=== PATIENT | male | born 1960 | race American Indian/Alaskan Native ===

== ENCOUNTER 2021-10-03 12:12 | Inpatient (IN) | payer SELFPAY ==
[2021-10-03] MEDS ORDERED: ONDANSETRON 4 MG ODT TAB PO ONE (18:37)
[2021-10-03] MEDS ORDERED: MORPHINE 4 MG/1 ML INJ IM ONE (18:37)
[2021-10-03 19:25] LABS: Hematocrit 46.1 % (35.5-45.6); Hemoglobin 14.8 gm/dl (11.8-15.2); Mean Corpuscular HGB Conc 32 % (32-34); Mean Corpuscular Volume 87 fl (84-94); Platelet Count 251 K/mm3 (140-440); Red Blood Count 5.31 M/mm3 (3.65-5.03); Red Cell Distribution Width 14.8 % (13.2-15.2)
[2021-10-03] MEDS ORDERED: MORPHINE 4 MG/1 ML INJ IV ONE ×2 (19:26→21:32)
[2021-10-03] MEDS ORDERED: ONDANSETRON 4 MG/2 ML INJ IV ONE ×2 (19:26→21:33)
[2021-10-03 19:33] LABS: Alanine Aminotransferase 24 units/L (7-56); BUN/Creatinine Ratio 13; Blood Urea Nitrogen 10 mg/dL (9-20); Calcium 9.8 mg/dL (8.4-10.2); Hemolysis Index 13
[2021-10-03 20:01] LABS: Bilirubin,Urine NEG (Negative); Blood,Urine MOD (Negative); Color,Urine Yellow (Yellow); Hyaline Casts,Urine 3 /LPF; Mucus,Urine FEW /HPF; Urobilinogen,Urine < 2.0 mg/dL (<2.0)
[2021-10-03] MEDS ORDERED: SODIUM CHLORIDE 0.9% 1000 ML 1,000 ML IV ONE (20:01)
--- NOTE | 2021-10-03 21:12 | Cat Scan Report ---
CT ABDOMEN AND PELVIS WITH CONTRAST INDICATION / CLINICAL INFORMATION: right groin pain and swelling.. TECHNIQUE: Axial CT images were obtained through the abdomen and pelvis after 100 mL Omnipaque [address] scans at this location are performed using CT dose reduction for ALARA by means of automated exposure control. COMPARISON: None available. FINDINGS: LOWER CHEST: No significant abnormality. LIVER: Diffusely hypodense characteristic of fatty infiltration with areas of focal fatty sparing in the right lobe. GALLBLADDER: No significant abnormality. BILE DUCTS: No significant abnormality. PANCREAS: No significant abnormality. SPLEEN: No significant abnormality. ADRENALS: No significant abnormality. RIGHT KIDNEY / URETER: No significant abnormality. LEFT KIDNEY / URETER: No significant abnormality. STOMACH / SMALL BOWEL: Moderately dilated, fluid-filled small bowel air-fluid levels. Moderately larg e right inguinal hernia containing loops of small bowel including the point of obstruction. COLON: No significant abnormality. APPENDIX: No significant abnormality. PERITONEUM: No free fluid. No free air. No fluid collection. LYMPH NODES: No significant adenopathy. AORTA / ARTERIES: No significant abnormality. IVC / VEINS: No significant abnormality. URINARY BLADDER: No stones. The anterior bladder is tented toward the opening of a small fat-containi ng left inguinal hernia. REPRODUCTIVE ORGANS: No significant abnormality. ADDITIONAL FINDINGS: None. SKELETAL SYSTEM: Moderate bilateral hip degenerative arthrosis. No acute osseous abnormality. IMPRESSION: 1. Moderately large right inguinal hernia containing small bowel loops with moderate grade small chetan l obstruction. 2. Small, fat-containing left inguinal hernia. 3. Hepatic steatosis. Signer Name: Dinh Baron MD Signed: 10/03/2021 9:08 PM Workstation Name: [id number]
--- NOTE | 2021-10-03 21:46 | Emergency Department Report ---
ED Abdominal Pain HPI - General Chief Complaint: Pain General Stated Complaint: HERNIA PAIN Time Seen by Provider: 10/03/21 18:35 Source: patient, EMS Mode of arrival: Ambulatory Limitations: No Limitations - History of Present Illness Initial Comments: 61-year-old black male with a past medical history of hypertension presents to the emergency department for evaluation of right groin and lower abdominal pain that started around 4:00 this morning. He states that about 1 month ago he was diagnosed with a right inguinal hernia at [facility] and was referred to surgery. He states that he did attempt to do his surgery follow-up but could not be seen secondary to not having a [facility] address, so he did decide to come to the emergency department here. He states that right groin pain and swelling has been getting increasingly worse over today and he started to have some nausea and vomiting while in the waiting room here. He states that pain is 10 out of 10 and worse when he ambulates. He denies fever, diarrhea, and penile discharge. MD Complaint: abdominal pain -: Gradual, hour(s), This morning Location: RLQ (And right groin) Radiation: none Migration to: no migration Severity scale (0 -10): 10 Quality: aching Consistency: constant Worsens With: other (Ambulation) Associated Symptoms: nausea, vomiting. denies: diarrhea, fever, chills, dysuria, hematemesis, hematochezia, melena, hematuria, anorexia, syncope - Related Data Home Medications Medication Instructions Recorded Confirmed Last Taken No Known Home Medications [No 10/03/21 10/03/21 Unknown Reported Home Medications] Allergies Allergy/AdvReac Type Severity Reaction Status Date / Time No Known Allergies Allergy Verified 10/03/21 12:17 ED Review of Systems ROS: Stated complaint: HERNIA PAIN Other details as noted in HPI Comment: All other systems reviewed and negative Constitutional: denies: chills, fever ENT: denies: ear pain, congestion Respiratory: denies: cough, shortness of breath, SOB with exertion, SOB at rest, stridor, wheezing Cardiovascular: denies: chest pain, palpitations, dyspnea on exertion, orthopnea, edema, syncope, paroxysmal nocturnal dyspnea Gastrointestinal: abdominal pain, nausea, vomiting. denies: diarrhea, he matemesis, melena, hematochezia Genitourinary: testicular pain. denies: urgency, dysuria, frequency, hematuria, discharge Musculoskeletal: denies: back pain Neurological: denies: headache, weakness ED Past Medical Hx - Social History Smoking Status: Never Smoker Substance Use Type: None - Medications Home Medications: Home Medications Medication Instructions Recorded Confirmed Last Taken Type No Known Home Medications [No 10/03/21 10/03/21 Unknown History Reported Home Medications] ED Physical Exam - General Limitations: No Limitations General appearance: alert, in no apparent distress - Head Head exam: Present: atraumatic, normocephalic - Eye Eye exam: Present: normal appearance. Absent: conjunctival injection - Neck Neck exam: Present: normal inspection, full ROM. Absent: tenderness - Respiratory Respiratory exam: Present: normal lung sounds bilaterally. Absent: respiratory distress, wheezes, rales, rhonchi, stridor, chest wall tenderness - Cardiovascular Cardiovascular Exam: Present: regular rate, normal heart sounds - GI/Abdominal GI/Abdominal exam: Present: soft, tenderness (RLQ ), normal bowel sounds. Absent: distended, guarding, rebound, rigid - Rectal Rectal exam: Present: deferred - exam: Present: testicular tenderness, scrotal swelling. Absent: normal inspection - Extremities Exam Extremities exam: Present: normal inspection, full ROM, normal capillary refill. Absent: pedal edema, joint swelling, calf tenderness - Back Exam Back exam: Present: normal inspection. Absent: CVA tenderness (R), CVA tenderness (L), vertebral tenderness - Neurological Exam Neurological exam: Present: alert, oriented X3 - Psychiatric Psychiatric exam: Present: normal affect, normal mood - Skin Skin exam: Present: warm, dry, intact, normal color ED Course Vital Signs 10/03/21 10/03/21 12:16 20:44 Temperature 98.7 F Pulse Rate 86 79 Respiratory 20 Rate Blood Pressure 198/110 147/85 [Left] O2 Sat by Pulse 98 98 Oximetry ED Medical Decision Making - Lab Data Result diagrams: 10/03/21 19:00 10/03/21 19:00 - Radiology Data Radiology results: report reviewed, image reviewed CT abdomen and pelvis with contrast: FINDINGS: LOWER CHEST: No significant abnormality. LIVER: Diffusely hypodense characteristic of fatty infiltration with areas of focal fatty sparing in the right lobe. GALLBLADDER: No significant abnormality. BILE DUCTS: No significant abnormality. PANCREAS: No significant abnormality. SPLEEN: No significant abnormality. ADRENALS: No significant abnormality. RIGHT KIDNEY / URETER: No significant abnormality. LEFT KIDNEY / URETER: No significant abnormality. STOMACH / SMALL BOWEL: Moderately dilated, fluid-filled small bowel air-fluid levels. Moderately large right inguinal hernia containing loops of small bowel including the point of obstruction. COLON: No significant abnormality. APPENDIX: No significant abnormality. PERITONEUM: No free fluid. No free air. No fluid collection. LYMPH NODES: No significant adenopathy. AORTA / ARTERIES: No significant abnormality. IVC / VEINS: No significant abnormality. URINARY BLADDER: No stones. The anterior bladder is tented toward the opening of a small fat- containing left inguinal hernia. REPRODUCTIVE ORGANS: No significant abnormality. ADDITIONAL FINDINGS: None. SKELETAL SYSTEM: Moderate bilateral hip degenerative arthrosis. No acute osseous abnormality. IMPRESSION: 1. Moderately large right inguinal hernia containing small bowel loops with moderate grade small bowel obstruction. 2. Small, fat-containing left inguinal hernia. 3. Hepatic steatosis. - Medical Decision Making 61-year-old black male with a past medical history of hypertension presents to the emergency department for evaluation of right groin and lower abdominal pain that started around 4:00 this morning. He states that about 1 month ago he was diagnosed with a right inguinal hernia at [facility] and was referred to surgery. He states that he did attempt to do his surgery follow-up but could not be seen secondary to not having a [facility] address, so he did decide to come to the emergency department here. He states that right groin pain and swelling has been getting increasingly worse over today and he started to have some nausea and vomiting while in the waiting room here. He states that pain is 10 out of 10 and worse when he ambulates. He denies fever, diarrhea, and penile discharge. No gross abnormalities noted on exam or labs. CT abdomen and pelvis positive for large inguinal hernia with small bowel inside with moderate grade obstruction. Case discussed with Dr. Raymond then surgery, Dr. Kowalski, consulted who agreed to evaluate patient. Dr. Tapia of the hospital medicine service, agreed to admit patient. Results and plan of care reviewed with patient and he verbalized understanding of and agreement with plan of care. Critical care attestation.: If time is entered above; I have spent that time in minutes in the direct care of this critically ill patient, excluding procedure time. ED Disposition Clinical Impression: Inguinal hernia Qualifiers: Obstruction and gangrene presence: with obstruction but without gangrene Latera lity: unilateral Recurrence: not specified as recurrent Qualified Code(s): K40.30 - Unilateral inguinal hernia, with obstruction, without gangrene, not specified as recurrent Disposition: 09 ADMITTED INPATIENT Is pt being admited?: Yes Does the pt Need Aspirin: No Condition: Stable
[2021-10-03] MEDS ORDERED: MORPHINE 4 MG/1 ML INJ IV PRN (22:06)
[2021-10-03] MEDS ORDERED: ONDANSETRON 4 MG/2 ML INJ IV PRN (22:06)
[2021-10-03] MEDS ORDERED: MORPHINE 2 MG/1 ML INJ IV PRN (22:06)
--- NOTE | 2021-10-03 22:14 | History and Physical Report ---
History of Present Illness Date of examination: 10/03/21 Date of admission: 10/03/21 Chief complaint: Abdominal pain History of present illness: 61-year-old black male with a past medical history of hypertension presents to the emergency department for evaluation of right groin and lower abdominal pain that started around 4:00 this morning. He states that about 1 month ago he was diagnosed with a right inguinal hernia at [facility] and was referred to surgery. He states that he did attempt to do his surgery follow-up but could not be seen secondary to not having a [facility] address, so he did decide to come to the emergency department here. He states that right groin pain and swelling has been getting increasingly worse over today and he started to have some nausea and vomiting while in the waiting room here. He states that pain is 10 out of 10 and worse when he ambulates. He denies fever, diarrhea. In the emergency room CT scan of the abdomen shows moderately large right inguinal hernia containing small bowel loops with moderate grade small bowel obstruction. Subsequently Case discussed with surgery's were going to admit the patient, surgery will see the patient for possible surgery. Past History Past Medical History: hypertension Medications and Allergies Allergies Allergy/AdvReac Type Severity Reaction Status Date / Time No Known Allergies Allergy Verified 10/03/21 12:17 Home Medications Medication Instructions Recorded Confirmed Last Taken Type No Known Home Medications [No 10/03/21 10/03/21 Unknown History Reported Home Medications] Active Meds: Active Medications Acetaminophen (Acetaminophen 325 Mg Tab) 650 mg PO Q4H PRN PRN Reason: Pain MILD(1-3)/Fever >100.5/GARCIA Albuterol (Albuterol 2.5 Mg/3 Ml Nebu) 2.5 mg IH Q3HRT PRN PRN Reason: Shortness Of Breath Albuterol/Ipratropium (Ipratropium/Albuterol Sulfate 3 Ml Ampul.Neb) 1 ampul IH Q6HRT MOHINI Famotidine (Famotidine 20 Mg/2 Ml Inj) 20 mg IV BID MOHINI Heparin Sodium (Porcine) (Heparin 5,000 Unit/1 Ml Vial) 5,000 unit SUB-Q Q12HR MOHINI Sodium Chloride (Nacl 0.45% 1000 Ml) 1,000 mls @ 100 mls/hr IV DIRECT MOHINI Piperacillin Sod/Tazobactam Sod (Zosyn/Ns 4.5gm/100ml) 4.5 gm in 100 mls @ 200 mls/hr IV Q8H MOHINI; Protocol Morphine Sulfate (Morphine 2 Mg/1 Ml Inj) 2 mg IV Q4H PRN PRN Reason: Pain, Moderate (4-6) Morphine Sulfate (Morphine 4 Mg/1 Ml Inj) 2 mg IV Q4H PRN PRN Reason: Pain , Severe (7-10) Ondansetron HCl (Ondansetron 4 Mg/2 Ml Inj) 4 mg IV Q8H PRN PRN Reason: Nausea And Vomiting Sodium Chloride (Sodium Chloride 0.9% 10 Ml Flush Syringe) 10 ml IV BID MOHINI Sodium Chloride (Sodium Chloride 0.9% 10 Ml Flush Syringe) 10 ml IV PRN PRN PRN Reason: LINE FLUSH Review of Systems All systems: negative Gastrointestinal: abdominal pain, nausea, vomiting Exam - Constitutional Vitals: Temp Pulse Resp BP Pulse Ox 98.7 F 79 20 147/85 98 10/03/21 20:44 10/03/21 20:44 10/03/21 20:44 10/03/21 20:44 10/03/21 20:44 General appearance: Present: no acute distress, well-nourished - EENT Eyes: Present: PERRL ENT: hearing intact, clear oral mucosa - Neck Neck: Present: supple, normal ROM - Respiratory Respiratory effort: normal Respiratory: bilateral: CTA - Cardiovascular Heart Sounds: Present: S1 & S2. Absent: rub, click - Extremities Extremities: pulses symmetrical, No edema Peripheral Pulses: within normal limits - Abdominal General gastrointestinal: Present: soft, non-tender, non-distended, normal bowel sounds Male genitourinary: Present: normal - Integumentary Integumentary: Present: clear, warm, dry - Musculoskeletal Musculoskeletal: gait normal, strength equal bilaterally - Psychiatric Psychiatric: appropriate mood/affect, intact judgment & insight - Neurologic Neurologic: CNII-XII intact, moves all extremities Results - Labs CBC & Chem 7: 10/03/21 19:00 10/03/21 19:00 Labs: Laboratory Last Values WBC 7.4 K/mm3 (4.5-11.0) 10/03/21 19:00 RBC 5.31 M/mm3 (3.65-5.03) H 10/03/21 19:00 Hgb 14.8 gm/dl (11.8-15.2) 10/03/21 19:00 Hct 46.1 % (35.5-45.6) H 10/03/21 19:00 MCV 87 fl (84-94) 10/03/21 19:00 MCH 28 pg (28-32) 10/03/21 19:00 MCHC 32 % (32-34) 10/03/21 19:00 RDW 14.8 % (13.2-15.2) 10/03/21 19:00 Plt Count 251 K/mm3 (140-440) 10/03/21 19:00 Sodium 137 mmol/L (137-145) 10/03/21 19:00 Potassium 4.1 mmol/L (3.6-5.0) 10/03/21 19:00 Chloride 99.9 mmol/L (98-107) 10/03/21 19:00 Carbon Dioxide 22 mmol/L (22-30) 10/03/21 19:00 Anion Gap 19 mmol/L 10/03/21 19:00 BUN 10 mg/dL (9-20) 10/03/21 19:00 Creatinine 0.8 mg/dL (0.8-1.3) 10/03/21 19:00 Estimated GFR > 60 ml/min 10/03/21 19:00 BUN/Creatinine Ratio 13 % 10/03/21 19:00 Glucose 108 mg/dL (75-100) H 10/03/21 19:00 Calcium 9.8 mg/dL (8.4-10.2) 10/03/21 19:00 Total Bilirubin 0.50 mg/dL (0.1-1.2) 10/03/21 19:00 AST 21 units/L (5-40) 10/03/21 19:00 ALT 24 units/L (7-56) 10/03/21 19:00 Alkaline Phosphatase 87 units/L (35-129) 10/03/21 19:00 Total Protein 7.8 g/dL (6.3-8.2) 10/03/21 19:00 Albumin 4.0 g/dL (3.9-5) 10/03/21 19:00 Albumin/Globulin Ratio 1.1 % 10/03/21 19:00 Lipase 12 units/L (13-60) L 10/03/21 19:00 Urine Color Yellow (Yellow) 10/03/21 Unknown Urine Turbidity Clear (Clear) 10/03/21 Unknown Urine pH 5.0 (5.0-7.0) 10/03/21 Unknown Ur Specific [place] 1.021 (1.003-1.030) 10/03/21 Unknown Urine Protein 30 mg/dl mg/dL (Negative) 10/03/21 Unknown Urine Glucose (UA) Neg mg/dL (Negative) 10/03/21 Unknown Urine Ketones Tr mg/dL (Negative) 10/03/21 Unknown Urine Blood Mod (Negative) 10/03/21 Unknown Urine Nitrite Neg (Negative) 10/03/21 Unknown Urine Bilirubin Neg (Negative) 10/03/21 Unknown Urine Urobilinogen < 2.0 mg/dL (<2.0) 10/03/21 Unknown Ur Leukocyte Esterase Neg (Negative) 10/03/21 Unknown Urine WBC (Auto) 3.0 /HPF (0.0-6.0) 10/03/21 Unknown Urine RBC (Auto) 6.0 /HPF (0.0-6.0) 10/03/21 Unknown U Epithel Cells (Auto) < 1.0 /HPF (0-13.0) 10/03/21 Unknown Hyaline Casts 3 /LPF 10/03/21 Unknown Urine Mucus Few /HPF 10/03/21 Unknown - Imaging and Cardiology CT scan - abdomen: report reviewed Assessment and Plan VTE prophylaxis?: Chemical Plan of care discussed with patient/family: Yes - Patient Problems (1) Inguinal hernia Status: Acute Qualifiers: Obstruction and gangrene presence: with obstruction but without gangrene Laterality: unilateral Recurrence: not specified as recurrent Qualified Code(s): K40.30 - Unilateral inguinal hernia, with obstruction, without gangrene, not specified as recurrent Plan to address problem: Admit the patient to the medical floor. NPO. Half-normal saline at the rate of 100 cc/h. Pepcid 20 mg IV every 12 hours. Morphine 2 mg IV every 4 hours as needed. Surgical evaluation. Zosyn 4.5 g IV every 8 hours (2) Nausea & vomiting Status: Acute Plan to address problem: NPO. Half-normal saline at the rate of 100 cc/h. Pepcid 20 mg IV every 12 hours. Zofran 4 mg IV every 6 hours as needed (3) Abdominal pain Status: Acute Plan to address problem: NPO. Half-normal saline at the rate of 100 cc/h. Pepcid 20 mg IV every 12 hours. Morphine 2 mg IV every 4 hours as needed. (4) Hypertension Status: Acute Plan to address problem: Hydralazine 10 mg IV every 6 hours as needed. We continue the home medication (5) DVT prophylaxis Status: Acute Plan to address problem: Heparin 5000 units subcu every 12 hours for DVT prophylaxis. Pepcid 20 mg IV every 12 hours for GI prophylaxis. Patient is a full code
[2021-10-03] MEDS ORDERED: MIDAZOLAM 2 MG/2 ML INJ ONE (22:35)
[2021-10-03] MEDS ORDERED: propofoL 200 MG/20 ML VIAL IV ONE (22:35)
[2021-10-03] MEDS ORDERED: fentaNYL 100 MCG/2 ML INJ ONE (22:35)
[2021-10-03] MEDS ORDERED: PIPERACIL/TAZOBACTA 4.5/NS 100 4.5 GM/100 ML VIAL IV SCH (23:00)
[2021-10-03] MEDS ORDERED: SODIUM CHLORIDE 0.45% 1000 ML 1,000 ML IV SCH (23:00)
--- NOTE | 2021-10-03 23:03 | Anesthesia Consultation ---
Anesthesia Consult and Med Hx Date of service: 10/03/21 - Airway Anesthetic Teeth Evaluation: Poor ROM Head & Neck: Adequate Mental/Hyoid Distance: Adequate Mallampati Class: Class II Intubation Access Assessment: Good - Pulmonary Exam CTA: Yes - Cardiac Exam Cardiac Exam: RRR - Pre-Operative Health Status ASA Pre-Surgery Classification: ASA2 Proposed Anesthetic Plan: General (Pt has no medical history.)
--- NOTE | 2021-10-03 23:04 | Anesthesia Day of Surgery ---
Anesthesia Day of Surgery - Day of Surgery Patient Examined: Yes Patient H&P Reviewed: Yes Patient is NPO: Yes
--- NOTE | 2021-10-03 23:23 | Consultation ---
History of Present Illness Consult date: 10/03/21 Reason for consult: abdominal pain Chief complaint: right inguinal hernia - History of present illness History of present illness: 61 yo M with hx of HTN and new diagnosis of right inguinal hernia 1 month ago at an urgent care. Presents with acute onset right groin pain. States that hernia bulges out but can usually be reduced when he lays down. This time the hernia became hard and could not be reduced. He has localized pain in the right groin. +Nausea and an episode of emesis in the ER. No f/c. He has never had symptoms like this before. He was referred to surgery dept at [place] but was not able to be seen. Past History Past Medical History: hypertension Past Surgical History: No surgical history Social history: smoking Family history: no significant family history Medications and Allergies Allergies Allergy/AdvReac Type Severity Reaction Status Date / Time No Known Allergies Allergy Verified 10/03/21 12:17 Home Medications Medication Instructions Recorded Confirmed Last Taken Type No Known Home Medications [No 10/03/21 10/03/21 Unknown History Reported Home Medications] Active Meds: Active Medications Acetaminophen (Acetaminophen 325 Mg Tab) 650 mg PO Q4H PRN PRN Reason: Pain MILD(1-3)/Fever >100.5/GARCIA Albuterol (Albuterol 2.5 Mg/3 Ml Nebu) 2.5 mg IH Q3HRT PRN PRN Reason: Shortness Of Breath Albuterol/Ipratropium (Ipratropium/Albuterol Sulfate 3 Ml Ampul.Neb) 1 ampul IH Q6HRT MOHINI Famotidine (Famotidine 20 Mg/2 Ml Inj) 20 mg IV BID MOHINI Heparin Sodium (Porcine) (Heparin 5,000 Unit/1 Ml Vial) 5,000 unit SUB-Q Q12HR MOHINI Sodium Chloride (Nacl 0.45% 1000 Ml) 1,000 mls @ 100 mls/hr IV DIRECT MOHINI Piperacillin Sod/Tazobactam Sod (Zosyn/Ns 4.5gm/100ml) 4.5 gm in 100 mls @ 200 mls/hr IV Q8H MOHINI; Protocol Morphine Sulfate (Morphine 2 Mg/1 Ml Inj) 2 mg IV Q4H PRN PRN Reason: Pain, Moderate (4-6) Morphine Sulfate (Morphine 4 Mg/1 Ml Inj) 2 mg IV Q4H PRN PRN Reason: Pain , Severe (7-10) Ondansetron HCl (Ondansetron 4 Mg/2 Ml Inj) 4 mg IV Q8H PRN PRN Reason: Nausea And Vomiting Sodium Chloride (Sodium Chloride 0.9% 10 Ml Flush Syringe) 10 ml IV BID MOHINI Sodium Chloride (Sodium Chloride 0.9% 10 Ml Flush Syringe) 10 ml IV PRN PRN PRN Reason: LINE FLUSH Review of Systems All systems: negative (10 pt ros performed and negative except for that listed in HPI) Exam Vital Signs Pulse BP Pulse Ox 86 198/110 98 10/03/21 12:16 10/03/21 12:16 10/03/21 12:16 Narrative exam: Gen: AAOx3. NAD ENT: no scleral icterus or conjunctival pallor CV: S1, S2+ Resp: even and unlabored Abd: soft, protuberant, NT, mildly distended. R inguinal hernia is firm and TTP. Cannot be reduced. No TTP on left. No skin changes Ext: No c/c/e Results - Labs 10/03/21 19:00 10/03/21 19:00 Abnormal lab results 10/03/21 10/03/21 Range/Units 19:00 19:00 RBC 5.31 H (3.65-5.03) M/mm3 Hct 46.1 H (35.5-45.6) % Glucose 108 H (75-100) mg/dL Lipase 12 L (13-60) units/L Diabetes panel 10/03/21 Range/Units 19:00 Sodium 137 (137-145) mmol/L Potassium 4.1 (3.6-5.0) mmol/L Chloride 99.9 (98-107) mmol/L Carbon Dioxide 22 (22-30) mmol/L BUN 10 (9-20) mg/dL Creatinine 0.8 (0.8-1.3) mg/dL Glucose 108 H (75-100) mg/dL Calcium 9.8 (8.4-10.2) mg/dL AST 21 (5-40) units/L ALT 24 (7-56) units/L Alkaline Phosphatase 87 (35-129) units/L Total Protein 7.8 (6.3-8.2) g/dL Albumin 4.0 (3.9-5) g/dL Calcium panel 10/03/21 Range/Units 19:00 Calcium 9.8 (8.4-10.2) mg/dL Albumin 4.0 (3.9-5) g/dL Pituitary panel 10/03/21 Range/Units 19:00 Sodium 137 (137-145) mmol/L Potassium 4.1 (3.6-5.0) mmol/L Chloride 99.9 (98-107) mmol/L Carbon Dioxide 22 (22-30) mmol/L BUN 10 (9-20) mg/dL Creatinine 0.8 (0.8-1.3) mg/dL Glucose 108 H (75-100) mg/dL Calcium 9.8 (8.4-10.2) mg/dL Adrenal panel 10/03/21 Range/Units 19:00 Sodium 137 (137-145) mmol/L Potassium 4.1 (3.6-5.0) mmol/L Chloride 99.9 (98-107) mmol/L Carbon Dioxide 22 (22-30) mmol/L BUN 10 (9-20) mg/dL Creatinine 0.8 (0.8-1.3) mg/dL Glucose 108 H (75-100) mg/dL Calcium 9.8 (8.4-10.2) mg/dL Total Bilirubin 0.50 (0.1-1.2) mg/dL AST 21 (5-40) units/L ALT 24 (7-56) units/L Alkaline Phosphatase 87 (35-129) units/L Total Protein 7.8 (6.3-8.2) g/dL Albumin 4.0 (3.9-5) g/dL - Imaging CT scan - abdomen: report reviewed, image reviewed CT scan - pelvis: report reviewed, image reviewed Assessment and Plan 61 yo M with incarcerated right inguinal hernia with small bowel obstruction Plan: 1. NPO 2. IVF 3. NGT to LIWS 4. prn pain and nausea control 5. DVT ppx 6. Preop abx 7. Recommend OR for emergent right groin exploration, inguinal hernia repair with possible mesh, possible bowel resection. Discussed indication for surgery along with risks, benefits, alternatives. All questions answered and consent obtained. 8. Increased risk for post op complications associated with smoking also discussed and smoking cessation encouraged. 9. Will proceed to OR tonight Thank you, please call with questions.
[2021-10-03] MEDS ORDERED: ALBUTEROL 2.5 MG/3 ML NEBU IH PRN (23:30)
[2021-10-03] MEDS ORDERED: ACETAMINOPHEN 325 MG TAB PO PRN (23:30)
[2021-10-03] MEDS ORDERED: BUPIVACAINE/PF (0.5%) 5 MG/1 ML 30 ML VIAL INFILTRATI ONE ×2 (23:39→23:45)
[2021-10-03] MEDS ORDERED: LIDOCAINE (1%) 10 MG/1 ML VIAL 20 ML MDV ONE (23:39)
[2021-10-03] MEDS ORDERED: SODIUM CHLORIDE 0.9% IRR 1,500 ML BOTTLE IR ONE (23:45)
[2021-10-03] MEDS ORDERED: LIDOCAINE (1%) 10 MG/1 ML VIAL 20 ML MDV INFILTRATI ONE (23:45)
[2021-10-04] MEDS ORDERED: ePHEDrine SULFATE 50 MG/1 ML INJ ONE (00:07)
[2021-10-04] MEDS ORDERED: GLYCOPYRROLATE 0.4 MG/2 ML INJ ONE (00:49)
[2021-10-04] MEDS ORDERED: NEOSTIGMINE 10MG/10 ML INJ MDV ONE (00:49)
[2021-10-04] MEDS ORDERED: LIDOCAINE MPF (2%) 20 MG/1 ML VIAL 5 ML ONE (00:49)
[2021-10-04] MEDS ORDERED: dexAMETHasone 20 MG/5 ML VIAL ONE (00:49)
[2021-10-04] MEDS ORDERED: ONDANSETRON 4 MG/2 ML INJ ONE (00:49)
[2021-10-04] MEDS ORDERED: KETOROLAC 30 MG/1 ML INJ ONE (00:49)
[2021-10-04] MEDS ORDERED: ONDANSETRON 4 MG/2 ML INJ IV PRN (01:12)
--- NOTE | 2021-10-04 01:14 | Post Operative Note ---
Pre-op diagnosis: incarcerated right inguinal hernia with SBO Post-op diagnosis: same Findings: Moderate sized right inguino scrotal hernia - reducible after anesthesia induced. Procedure: open right inguinal hernia repair with mesh Anesthesia: JEANE local Surgeon: TIO LUZ Grain Handler: TARYN ACOSTA Estimated blood loss: minimal Pathology: none Condition: stable Disposition: PACU
[2021-10-04] MEDS ORDERED: ACETAMINOPHEN 325 MG TAB PO PRN (01:18)
[2021-10-04] MEDS ORDERED: fentaNYL 100 MCG/2 ML INJ IV PRN (01:18)
[2021-10-04] MEDS ORDERED: MORPHINE 2 MG/1 ML INJ IV PRN (01:18)
[2021-10-04] MEDS: hydrALAZINE 20 MG/1 ML INJ IV PRN ×2 (01:25→01:41)
[2021-10-04] MEDS: KETOROLAC 30 MG/1 ML INJ IV SCH ×3 (05:04→21:38)
[2021-10-04 05:19] LABS: Basophils # (Auto) 0.1 K/mm3 (0.0-0.1); Basophils % (Auto) 0.7 % (0.0-1.8); Hematocrit 43.8 % (35.5-45.6); Hemoglobin 14.9 gm/dl (11.8-15.2); Lymphocytes # (Auto) 1.2 K/mm3 (1.2-5.4); Lymphocytes % (Auto) 12.5 % (13.4-35.0); Mean Corpuscular HGB Conc 34 % (32-34); Mean Corpuscular Volume 84 fl (84-94); Monocytes # (Auto) 0.2 K/mm3 (0.0-0.8); Monocytes % (Auto) 1.6 % (0.0-7.3); Platelet Count 228 K/mm3 (140-440); Red Blood Count 5.19 M/mm3 (3.65-5.03); Red Cell Distribution Width 14.6 % (13.2-15.2)
[2021-10-04 05:40] LABS: BUN/Creatinine Ratio 11; Blood Urea Nitrogen 11 mg/dL (9-20); Calcium 9.1 mg/dL (8.4-10.2); Hemolysis Index 7
--- NOTE | 2021-10-04 08:57 | Progress Note ---
Assessment and Plan Assessment and plan: History of present illness: 61-year-old black male with a past medical history of hypertension presents to the emergency department for evaluation of right groin and lower abdominal pain that started around 4:00 this morning. He states that about 1 month ago he was diagnosed with a right inguinal hernia at [facility] and was referred to surgery. He states that he did attempt to do his surgery follow-up but could not be seen secondary to not having a [facility] address, so he did decide to come to the emergency department here. He states that right groin pain and swelling has been getting increasingly worse over today and he started to have some nausea and vomiting while in the waiting room here. He states that pain is 10 out of 10 and worse when he ambulates. He denies fever, diarrhea. Hospital Course: 10/04: s/p inguinal hernia repair. Patient in no distress, no longer nauseous or in pain. NG d/c by surgery initiated CLD. Adv as tolerated. Anticipate d/c in next 24 hrs if ok with surgery. Assessment and Plan: #Inguinal hernia Admit the patient to the medical floor. NPO. Half-normal saline at the rate of 100 cc/h. Pepcid 20 mg IV every 12 hours. Morphine 2 mg IV every 4 hours as needed. Zosyn 4.5 g IV every [address] scan of the abdomen shows moderately large right inguinal hernia containing small bowel loops with moderate grade small bowel obstruction. s/p inguinal hernia repair NG d/c, CLD, advance as tolerated gen surgery following. #Nausea & vomiting (resolved) zofran as needed # Abdominal pain (resolved) CLD, Pepcid 20 mg IV every 12 hours. Morphine 2 mg IV every 4 hours as needed. #Hypertension Hydralazine 10 mg IV every 6 hours as needed. We continue the home medication Elevated BP this am, added amlodipine 10 mg po daily and lisinopril 20 mg po daily. #Obesity - behavioral health counseling on weight loss, + 15 mins. # DVT prophylaxis Heparin 5000 units subcu every 12 hours for DVT prophylaxis. Pepcid 20 mg IV every 12 hours for GI prophylaxis. Patient is a full code #Advance care planning Disease education conducted, care plan discussed, diagnoses discussed, prognosis discussed, patient is full code, patient acknowledges understanding and agree with care plan, +30 minutes. History Interval history: No acute complaints. Resting comfortably. Denies any nausea or abdominal pain otherwise. Hospitalist Physical - Physical exam Narrative exam: Physical Exam: VITAL SIGNS: Reviewed. GENERAL: The patient appears normally developed, Vital signs as documented. HEAD: No signs of head trauma. EYES: Pupils are equal. Extraocular motions intact. EARS: Hearing grossly intact. MOUTH: Oropharynx is normal. NECK: No adenopathy, no JVD. CHEST: Chest with clear breath sounds bilaterally. No wheezes, rales, or rhonchi. CARDIAC: Regular rate and rhythm. S1 and S2, without murmurs, gallops, or rubs. VASCULAR: No Edema. Peripheral pulses normal and equal in all extremities. ABDOMEN: Soft, non tender and non distended. No rebound or guarding, and no masses palpated. Bowel Sounds normal. overlying dressing in region of left groin. MUSCULOSKELETAL: Good range of motion of all major joints. Extremities without clubbing, cyanosis or edema. NEUROLOGIC EXAM: Alert and oriented x 4. no focal sensory or strength deficits. PSYCHIATRIC: Mood normal. SKIN: detail exam as documented in skin assessment - Constitutional Vitals: Temp Pulse Resp BP Pulse Ox 97.8 F 69 16 171/87 98 10/04/21 01:10 10/04/21 05:01 10/04/21 02:15 10/04/21 05:01 10/04/21 05:01 General appearance: Present: no acute distress, well-nourished Results - Labs CBC & Chem 7: 10/04/21 04:30 10/04/21 04:30 Labs: Laboratory Last Values WBC 9.2 K/mm3 (4.5-11.0) 10/04/21 04:30 RBC 5.19 M/mm3 (3.65-5.03) H 10/04/21 04:30 Hgb 14.9 gm/dl (11.8-15.2) 10/04/21 04:30 Hct 43.8 % (35.5-45.6) 10/04/21 04:30 MCV 84 fl (84-94) 10/04/21 04:30 MCH 29 pg (28-32) 10/04/21 04:30 MCHC 34 % (32-34) 10/04/21 04:30 RDW 14.6 % (13.2-15.2) 10/04/21 04:30 Plt Count 228 K/mm3 (140-440) 10/04/21 04:30 Lymph % (Auto) 12.5 % (13.4-35.0) L 10/04/21 04:30 Luce % (Auto) 1.6 % (0.0-7.3) 10/04/21 04:30 Eos % (Auto) 0.0 % (0.0-4.3) 10/04/21 04:30 Baso % (Auto) 0.7 % (0.0-1.8) 10/04/21 04:30 Lymph # (Auto) 1.2 K/mm3 (1.2-5.4) 10/04/21 04:30 Luce # (Auto) 0.2 K/mm3 (0.0-0.8) 10/04/21 04:30 Eos # (Auto) 0.0 K/mm3 (0.0-0.4) 10/04/21 04:30 Baso # (Auto) 0.1 K/mm3 (0.0-0.1) 10/04/21 04:30 Seg Neutrophils % 85.2 % (40.0-70.0) H 10/04/21 04:30 Seg Neutrophils # 7.9 K/mm3 (1.8-7.7) H 10/04/21 04:30 Sodium 139 mmol/L (137-145) 10/04/21 04:30 Potassium 3.9 mmol/L (3.6-5.0) 10/04/21 04:30 Chloride 100.4 mmol/L (98-107) 10/04/21 04:30 Carbon Dioxide 27 mmol/L (22-30) 10/04/21 04:30 Anion Gap 16 mmol/L 10/04/21 04:30 BUN 11 mg/dL (9-20) 10/04/21 04:30 Creatinine 1.0 mg/dL (0.8-1.3) 10/04/21 04:30 Estimated GFR > 60 ml/min 10/04/21 04:30 BUN/Creatinine Ratio 11 % 10/04/21 04:30 Glucose 113 mg/dL (75-100) H 10/04/21 04:30 Calcium 9.1 mg/dL (8.4-10.2) 10/04/21 04:30 Total Bilirubin 0.50 mg/dL (0.1-1.2) 10/03/21 19:00 AST 21 units/L (5-40) 10/03/21 19:00 ALT 24 units/L (7-56) 10/03/21 19:00 Alkaline Phosphatase 87 units/L (35-129) 10/03/21 19:00 Total Protein 7.8 g/dL (6.3-8.2) 10/03/21 19:00 Albumin 4.0 g/dL (3.9-5) 10/03/21 19:00 Albumin/Globulin Ratio 1.1 % 10/03/21 19:00 Lipase 12 units/L (13-60) L 10/03/21 19:00 Urine Color Yellow (Yellow) 10/03/21 Unknown Urine Turbidity Clear (Clear) 10/03/21 Unknown Urine pH 5.0 (5.0-7.0) 10/03/21 Unknown Ur Specific Elba 1.021 (1.003-1.030) 10/03/21 Unknown Urine Protein 30 mg/dl mg/dL (Negative) 10/03/21 Unknown Urine Glucose (UA) Neg mg/dL (Negative) 10/03/21 Unknown Urine Ketones Tr mg/dL (Negative) 10/03/21 Unknown Urine Blood Mod (Negative) 10/03/21 Unknown Urine Nitrite Neg (Negative) 10/03/21 Unknown Urine Bilirubin Neg (Negative) 10/03/21 Unknown Urine Urobilinogen < 2.0 mg/dL (<2.0) 10/03/21 Unknown Ur Leukocyte Esterase Neg (Negative) 10/03/21 Unknown Urine WBC (Auto) 3.0 /HPF (0.0-6.0) 10/03/21 Unknown Urine RBC (Auto) 6.0 /HPF (0.0-6.0) 10/03/21 Unknown U Epithel Cells (Auto) < 1.0 /HPF (0-13.0) 10/03/21 Unknown Hyaline Casts 3 /LPF 10/03/21 Unknown Urine Mucus Few /HPF 10/03/21 Unknown Nur/IV: Voiding Method Urinal Active Medications - Current Medications Current Medications: Generic Name Dose Route Start Last Admin Trade Name Freq PRN Reason Stop Dose Admin Acetaminophen 650 mg 10/03/21 23:30 Acetaminophen 325 Mg Tab PO Q4H PRN Pain MILD(1-3)/Fever >100.5/GARCIA Acetaminophen 650 mg 10/04/21 01:18 Acetaminophen 325 Mg Tab PO 10/04/21 09:00 ONCE PRN Pain, Mild (1-3) Albuterol 2.5 mg 10/03/21 23:30 Albuterol 2.5 Mg/3 Ml Nebu IH Q3HRT PRN Shortness Of Breath Albuterol/Ipratropium 1 ampul 10/04/21 02:00 Ipratropium/Albuterol Sulfate 3 Ml Ampul.Neb IH Q6HRT MOHINI Famotidine 20 mg 10/04/21 10:00 Famotidine 20 Mg/2 Ml Inj IV BID MOHINI Fentanyl 50 mcg 10/04/21 01:18 Fentanyl 100 Mcg/2 Ml Inj IV 10/04/21 10:00 Q5MIN PRN Pain , Severe (7-10) Heparin Sodium (Porcine) 5,000 unit 10/04/21 10:00 Heparin 5,000 Unit/1 Ml Vial SUB-Q Q12HR [facility] Hydralazine HCl 10 mg 10/04/21 01:19 10/04/21 01:41 Hydralazine 20 Mg/1 Ml Inj IV 10/04/21 12:00 10 mg Q30MIN PRN Administration Hypertension Sodium Chloride 1,000 mls @ 100 mls/hr 10/03/21 23:00 10/04/21 04:34 Nacl 0.45% 1000 Ml IV 100 mls/hr DIRECT MOHINI Administration Ketorolac Tromethamine 30 mg 10/04/21 06:00 10/04/21 05:04 Ketorolac 30 Mg/1 Ml Inj IV 10/09/21 05:59 30 mg Q8H MOHINI Administration Morphine Sulfate 2 mg 10/03/21 22:06 Morphine 2 Mg/1 Ml Inj IV Q4H PRN Pain, Moderate (4-6) Morphine Sulfate 2 mg 10/04/21 01:18 Morphine 2 Mg/1 Ml Inj IV 10/04/21 10:00 Q10MIN PRN Pain, Moderate (4-6) Nicotine 14 mg 10/04/21 10:00 Nicotine 14 Mg/24 Hr Patch TD QDAY [facility] Ondansetron HCl 4 mg 10/04/21 01:12 Ondansetron 4 Mg/2 Ml Inj IV Q6H PRN Nausea And Vomiting Sodium Chloride 10 ml 10/04/21 10:00 Sodium Chloride 0.9% 10 Ml Flush Syringe IV BID MOHINI Sodium Chloride 10 ml 10/03/21 22:06 10/04/21 05:05 Sodium Chloride 0.9% 10 Ml Flush Syringe IV 10 ml PRN PRN Administration LINE FLUSH
[2021-10-04] MEDS: IPRATROPIUM/ALBUTEROL SULFATE 3 ML AMPUL.NEB IH SCH ×2 (09:12→14:32)
--- NOTE | 2021-10-04 09:32 | Operative Report ---
Operative Report Operative Report: Date: 10/04/21 Pre-op diagnosis: incarcerated right inguinal hernia with SBO Post-op diagnosis: same Findings: Moderate sized right inguino scrotal hernia - reducible after anesthesia induced. Procedure: open right inguinal hernia repair with mesh Anesthesia: yenifer CHING Surgeon: TIO LUZ Oyster Planter: TARYN ACOSTA Estimated blood loss: minimal Pathology: none Condition: stable Disposition: PACU HPI and indication: Patient is a 61-year-old male with past medical history of hypertension who presents to the emergency room with several days of worsening right groin pain and swelling. The patient has a known history of a right inguinal hernia which was diagnosed 1 month prior and he was referred to surgery for evaluation. Patient states that the hernia is always soft, nontender and reducible however in the last few days has become firm and not reducible. He had 1 episode of nausea and vomiting in the emergency room. Work-up in the emergency room included a CT scan of the abdomen and pelvis which revealed a moderate sized right inguinal scrotal hernia containing obstructed small bowel. The hernia was not able to be reduced at the bedside. It was recommended the patient undergo emergent open right inguinal hernia repair. All risks, benefits, alternatives to surgery were discussed with the patient including but not limited to infection, bleeding, injury to surrounding structures, hernia recurrence. All questions were answered and consent obtained. Procedure in detail: The patient was identified and taken back to the operating room. He was placed on the operating room table in supine position. The operative site had been marked. After anesthesia was induced the abdomen and right groin and scrotum were prepped and draped in the usual sterile fashion and a timeout performed. An incision was made in the right groin mcfp between the ASIS and pubic tubercle. Dissection was carried down through the skin and subcutaneous tissue using electrocautery until the external oblique fascia was identified. This was incised with a 10 blade and then opened using Metzenbaum scissors in the direction of the fibers. The right ilioinguinal nerve was identified but going directly through the external oblique in the area of dissection and could not be salvaged and therefore it was divided. Hemostat was placed on each leaflet of the external oblique fascia. Using blunt dissection the cord structures and hernia contents were dissected free from the underside of the external oblique fascia. Due to the patient's body habitus, the cord structures were very deep. the cord structures were encircled and retracted with a Jorge Luis. During the dissection the majority of the hernia contents were reduced. There was a medium size indirect inguinoscrotal hernia hernia. The sac was identified and very meticulously dissected from the cord structures. The vas deferens was identified and protected. Once the entirety of the sac was dissected free from the cord structures it was reduced. Hemostasis was carefully ensured. At this point the hernia was repaired with a large plug and patch mesh. The plug was placed in the preperitoneal space and secured to the shelving edge of the inguinal ligament and transversalis fascia using interrupted 2-0 Prolene stitches. The patch was placed in the usual fashion and the apex secured to the pubic tubercle using a interrupted 2-0 Prolene stitch. The lateral and medial aspects of the mesh were sutured to the shelving edge of the inguinal ligament and the transversalis fascia using interrupted 2-0 Prolene stitches at each 1 cm interval. The precut hole in the mesh was placed around the cord structures with adequate room for the cord structures. The 2 flaps were sutured together using an interrupted 2-0 Prolene stitch. This was tucked underneath the external oblique fascia. The external oblique fascia was then reapproximated using a running 3-0 Vicryl stitch. The subcutaneous tissue was irrigated and hemostasis very carefully ensured. Local anesthetic was infiltrated into the skin, subcutaneous tissue and fascia. The deep dermal layer was approximated using interrupted 3-0 Vicryl stitches. The skin was approximated using 4-0 Monocryl subcuticular running stitch and skin glue. At the end of the case all sponge, instrument, sharp counts were correct x2. The scrotum was examined and both testicles were palpated in anatomical position. A scrotal support was applied. The patient was awoken from anesthesia and extubated. He was taken to PACU in stable condition.
[2021-10-04] MEDS: NICOTINE 14 MG/24 HR PATCH TD SCH (10:18)
[2021-10-04] MEDS: FAMOTIDINE 20 MG/2 ML INJ IV SCH ×2 (10:18→21:38)
[2021-10-04] MEDS: HEPARIN 5,000 UNIT/1 ML VIAL SUB-Q SCH ×2 (10:19→21:39)
--- NOTE | 2021-10-04 13:57 | Progress Note ---
Assessment and Plan 61 yo M s/p open right inguinal hernia repair with mesh, POD 0 1. incarcerated right inguinal hernia 2. small bowel obstruction 2/2 #1 NGT - no output Plan: 1. DC NGT 2. dc IVF 3. CLD - adv as laura 4. prn pain and nausea control - add PO norco 5. DVT ppx 6. IS/Pulm toilet 7. OOB.ambulate 8. May shower 9. Scrotal support as needed 10. DC planning in am Thank you, please call with questions. Subjective Date of service: 10/04/21 Narrative: Pt seen and examined. No acute complaints. Pain well controlled. Has not been OOB. NO n/v. No f/c, cp, sob. Has not passed flatus. Feels hungry. Objective Vital Signs - 12hr 10/04/21 10/04/21 10/04/21 01:56 02:03 02:15 Temperature Pulse Rate 58 L 54 L 52 L Respiratory 19 15 16 Rate Blood Pressure 187/94 180/88 173/83 O2 Sat by Pulse 98 99 100 Oximetry 10/04/21 10/04/21 10/04/21 02:27 02:40 05:01 Temperature Pulse Rate 60 69 Respiratory Rate Blood Pressure 182/84 171/87 O2 Sat by Pulse 97 98 98 Oximetry 10/04/21 10/04/21 09:13 11:50 Temperature 98.2 F Pulse Rate 69 Respiratory 22 Rate Blood Pressure 166/88 O2 Sat by Pulse 98 100 Oximetry - General physical appearance Narrative Exam: Gen.: Awake, alert, oriented x3. No apparent distress ENT: Trachea midline. No lymphadenopathy. No scleral icterus or conjunctival pallor CV: S1, S2 present Respiratory: No audible wheezes Abdomen: Soft, nondistended, nontender. R groin incision c/d/i. Scrotal support in place. No rebound, rigidity, guarding Extremities: No clubbing, cyanosis, edema - Labs 10/04/21 04:30 10/04/21 04:30 Diabetes panel 10/03/21 10/04/21 Range/Units 19:00 04:30 Sodium 137 139 (137-145) mmol/L Potassium 4.1 3.9 (3.6-5.0) mmol/L Chloride 99.9 100.4 (98-107) mmol/L Carbon Dioxide 22 27 (22-30) mmol/L BUN 10 11 (9-20) mg/dL Creatinine 0.8 1.0 (0.8-1.3) mg/dL Glucose 108 H 113 H (75-100) mg/dL Calcium 9.8 9.1 (8.4-10.2) mg/dL AST 21 (5-40) units/L ALT 24 (7-56) units/L Alkaline Phosphatase 87 (35-129) units/L Total Protein 7.8 (6.3-8.2) g/dL Albumin 4.0 (3.9-5) g/dL Calcium panel 10/03/21 10/04/21 Range/Units 19:00 04:30 Calcium 9.8 9.1 (8.4-10.2) mg/dL Albumin 4.0 (3.9-5) g/dL Pituitary panel 10/03/21 10/04/21 Range/Units 19:00 04:30 Sodium 137 139 (137-145) mmol/L Potassium 4.1 3.9 (3.6-5.0) mmol/L Chloride 99.9 100.4 (98-107) mmol/L Carbon Dioxide 22 27 (22-30) mmol/L BUN 10 11 (9-20) mg/dL Creatinine 0.8 1.0 (0.8-1.3) mg/dL Glucose 108 H 113 H (75-100) mg/dL Calcium 9.8 9.1 (8.4-10.2) mg/dL Adrenal panel 10/03/21 10/04/21 Range/Units 19:00 04:30 Sodium 137 139 (137-145) mmol/L Potassium 4.1 3.9 (3.6-5.0) mmol/L Chloride 99.9 100.4 (98-107) mmol/L Carbon Dioxide 22 27 (22-30) mmol/L BUN 10 11 (9-20) mg/dL Creatinine 0.8 1.0 (0.8-1.3) mg/dL Glucose 108 H 113 H (75-100) mg/dL Calcium 9.8 9.1 (8.4-10.2) mg/dL Total Bilirubin 0.50 (0.1-1.2) mg/dL AST 21 (5-40) units/L ALT 24 (7-56) units/L Alkaline Phosphatase 87 (35-129) units/L Total Protein 7.8 (6.3-8.2) g/dL Albumin 4.0 (3.9-5) g/dL
[2021-10-04] MEDS ORDERED: HYDROcodone/ACETAMINOPHEN 5-325 MG TAB PO PRN (13:59)
[2021-10-04] MEDS: amLODIPine 10 MG TAB PO SCH (17:51)
[2021-10-04] MEDS: LISINOPRIL 20 MG TAB PO SCH (17:54)
[2021-10-05] MEDS: IPRATROPIUM/ALBUTEROL SULFATE 3 ML AMPUL.NEB IH SCH ×2 (03:09→03:10)
[2021-10-05] MEDS: KETOROLAC 30 MG/1 ML INJ IV SCH (06:43)
--- NOTE | 2021-10-05 08:07 | Post Anesthesia Evaluation ---
- Post Anesthesia Evaluation Patient Participated: Yes Airway Patent: Yes Stable Respiratory Function: Yes Nausea/Vomiting: No Temp > 96.8F: Yes Pain Manageable: Yes Adequeate Hydration: Yes Anesthesia Complications: No Block Receding Appropriately: Not Applicable Patient on Ventilator: No
[2021-10-05] MEDS ORDERED: FAMOTIDINE 20 MG TAB PO SCH (10:15)
[2021-10-05] MEDS: NICOTINE 14 MG/24 HR PATCH TD SCH (11:29)
[2021-10-05] MEDS: HEPARIN 5,000 UNIT/1 ML VIAL SUB-Q SCH (11:32)
[2021-10-05] MEDS: LISINOPRIL 20 MG TAB PO SCH (11:33)
[2021-10-05 11:35] VITALS: BP 171/94
[2021-10-05] MEDS: amLODIPine 10 MG TAB PO SCH (11:41)
--- NOTE | 2021-10-05 12:40 | Discharge Summary ---
Providers - Providers Date of Admission: 10/03/21 22:06 Attending physician: DIANA RÍOS MD 10/03/21 21:47 Consult to Physician [CONS] Stat Comment: MICHELLE Zaragoza spoke with Dr. 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 He states that about 1 month ago he was diagnosed with a right inguinal hernia at [facility] and was referred to surgery. He states that he did attempt to do his surgery follow-up but could not be seen secondary to not having a [facility] address, so he did decide to come to the emergency department here. He states that right groin pain and swelling has been getting increasingly worse over today and he started to have some nausea and vomiting while in the waiting room here. He states that pain is 10 out of 10 and worse when he ambulates. He denies fever, diarrhea. Hospital Course: 10/04: s/p inguinal hernia repair. Patient in no distress, no longer nauseous or in pain. NG d/c by surgery initiated CLD. Adv as tolerated. Anticipate d/c in next 24 hrs if ok with surgery. 10/05 Patient tolerated diet. Advised to follow up with Dr Luz (gen surgery as OP in 2 weeks) and avoid strenuous physical activity including carrying weight more than 15 lbs. Will discharge home with short course of prn pain medication. Assessment and Plan: #Inguinal hernia Admit the patient to the medical floor. NPO. Half-normal saline at the rate of 100 cc/h. Pepcid 20 mg IV every 12 hours. Morphine 2 mg IV every 4 hours as needed. Zosyn 4.5 g IV every [address] scan of the abdomen shows moderately large right inguinal hernia containing small bowel loops with moderate grade small bowel obstruction. s/p inguinal hernia repair NG d/c, CLD, advance as tolerated gen surgery following. #Nausea & vomiting (resolved) zofran as needed # Abdominal pain (resolved) CLD, Pepcid 20 mg IV every 12 hours. Morphine 2 mg IV every 4 hours as needed. #Incarcerated bowel - from inguinal hernia, s/p hernia repair. #Small bowel obstruction - due to incarcerated small bowel. - noted on CTAP, resolved after surgery #Hypertension Hydralazine 10 mg IV every 6 hours as needed. We continue the home medication Elevated BP this am, added amlodipine 10 mg po daily and lisinopril 20 mg po daily. #Obesity - behavioral health counseling on weight loss, + 15 mins. # DVT prophylaxis Heparin 5000 units subcu every 12 hours for DVT prophylaxis. Pepcid 20 mg IV every 12 hours for GI prophylaxis. Patient is a full code #Advance care planning Disease education conducted, care plan discussed, diagnoses discussed, prognosis discussed, patient is full code, patient acknowledges understanding and agree with care plan, +30 minutes. Disposition: HOME / SELF CARE / HOMELESS Final Discharge Diagnosis (Prints w/discharge instructions): inguinal hernia, incarcerated bowel, small bowel obstruction Time spent for discharge: 35 Core Measure Documentation - Palliative Care Palliative Care/ Comfort Measures: Not Applicable - Core Measures Any of the following diagnoses?: none Exam - Physical Exam Narrative exam: Physical Exam: VITAL SIGNS: Reviewed. GENERAL: The patient appears normally developed, Vital signs as documented. HEAD: No signs of head trauma. EYES: Pupils are equal. Extraocular motions intact. EARS: Hearing grossly intact. MOUTH: Oropharynx is normal. NECK: No adenopathy, no JVD. CHEST: Chest with clear breath sounds bilaterally. No wheezes, rales, or rhonchi. CARDIAC: Regular rate and rhythm. S1 and S2, without murmurs, gallops, or rubs. VASCULAR: No Edema. Peripheral pulses normal and equal in all extremities. ABDOMEN: Soft, non tender and non distended. No rebound or guarding, and no masses palpated. Bowel Sounds normal. overlying dressing in region of left groin. MUSCULOSKELETAL: Good range of motion of all major joints. Extremities without clubbing, cyanosis or edema. NEUROLOGIC EXAM: Alert and oriented x 4. no focal sensory or strength deficits. PSYCHIATRIC: Mood normal. SKIN: detail exam as documented in skin assessment - Constitutional Vitals: Temp Pulse Resp BP Pulse Ox 97.2 F L 73 22 171/94 97 10/05/21 05:50 10/05/21 11:41 10/05/21 05:50 10/05/21 11:41 10/05/21 09:27 Plan Plan of Treatment: Admitted for inguinal hernia, small bowel obstruction due to incarcerated small bowel. S/p inguinal hernia repair by surgery. Patient now tolerating diet. Symptomology resolved. Advised to follow up with Dr Luz (gen surgery as OP in 2 weeks) and avoid strenuous physical activity including carrying weight more than 15 lbs. Will discharge home with short course of prn pain medication. Follow up with: TIO LUZ DO [Staff Physician] - 14 Days PRIMARY CARE, [Primary Care Provider] - 7 Days ORLIN MCALLISTER MD [Staff Physician] - 7 Days Prescriptions: HYDROcodone/APAP 5-325 [[place] 5-325 mg TAB] 1 each PO Q8H PRN 3 Days #9 tablet PRN Reason: Pain , Severe (7-10)
== END 2021-10-05 14:39 | disposition home or self-care (01) | DRG 351 ==
LOC: ED 12:12 → 3A 22:06
PROVIDERS: ADMIT Hospitalist; ATTEND Internal Medicine
PROC: 0YU50JZ Supplement Right Inguinal Region with Synthetic Substitute, Open Approach (ICD-10-PCS; principal; 2021-10-04)
DX: K40.30 Unilateral inguinal hernia, with obstruction, without gangrene, not specified as recurrent (principal); K56.609 Unspecified intestinal obstruction, unspecified as to partial versus complete obstruction; I10 Essential (primary) hypertension; E66.9 Obesity, unspecified; Z68.31 Body mass index [BMI] 31.0-31.9, adult
CPT/HCPCS: 36415; 74177; 80048; 80053; 81001; 83690; 85025; 85027; 87641; 94640; 94760; 99406; G0378; J1815; J3490; C1781; J0360; J1100; J1644; J1885; J2250; J2270; J2405; J2704; J2710; J3010; J7030; Q9967